=== PATIENT | female | born 1955 | race Caucasian/White ===

== ENCOUNTER 2021-05-07 08:24 | Day surgery (SDC) | payer MEDICARE ==
[2021-05-03 11:36] LABS: BASOPHILS % (AUTO) 0.8 % (0-1); EOSINOPHILS # (AUTO) 0.1 X10'3 (0-0.9); EOSINOPHILS % (AUTO) 1.3 % (0-6); LYMPHOCYTES # (AUTO) 1.4 X10'3 (1.1-4.8); LYMPHOCYTES % (AUTO) 23.4 % (21-51); MEAN CORPUSCULAR HEMOGLOBIN 31.6 PG (27.0-31.0); MEAN CORPUSCULAR HGB CONC 33.8 g/dL (33.0-36.5); MEAN CORPUSCULAR VOLUME 93.5 FL (78-98); MEAN PLATELET VOLUME 8.9 FL (7.4-10.4); MONOCYTES # (AUTO) 0.4 X10'3 (0-0.9); MONOCYTES % (AUTO) 6.9 % (2-12); NEUTROPHILS % (AUTO) 67.6 % (42-75); PRE OP HEMATOCRIT 39.3 % (35.0-45.0); PRE OP HEMOGLOBIN 13.3 g/dL (12.0-16.0); PRE OP PLATELET COUNT 269 X10'3 (140-440); RED BLOOD COUNT 4.21 X10'6 (4.20-5.60); RED CELL DISTRIBUTION WIDTH 13.1 % (11.5-14.5)
[2021-05-03 11:53] LABS: ALBUMIN 3.9 G/DL (3.4-5.0); ALKALINE PHOSPHATASE 99 IU/L (46-116); BLOOD UREA NITROGEN 14 MG/DL (7-18); BUN/CREATININE RATIO 20.3 (6.6-38.0); CALCIUM 9.1 MG/DL (8.5-10.1); CHLORIDE 107 MMOL/L (99-107); CREATININE 0.69 MG/DL (0.40-0.90); PRE OP ALT 26 U/L (30-65); PRE OP ANION GAP 11 (8-16); PRE OP AST 17 U/L (10-37); PRE OP BILIRUB, TOTAL 0.4 MG/DL (0.0-1.0); PRE OP GLUCOSE 92 MG/DL (70-104); PRE OP POTASSIUM 4.1 MMOL/L (3.4-5.1); PRE OP SODIUM 146 MMOL/L (135-145); TOTAL CARBON DIOXIDE 28.5 MMOL/L (24-32); TOTAL PROTEIN 7.9 G/DL (6.4-8.2); eGFR 85 ML/MIN
[~2021-05-07] VITALS: Ht 160 cm; Wt 138.0 kg
[2021-05-07] VITALS (7 sets, daily range): BP systolic 116–134; BP diastolic 60–73
[~2021-05-07 08:24] MED LIST: VITAMINS; ceFAZolin inj. 3,000 MG in normal saline 100ml IV soln 100 ML IV ONE; ceFAZolin/D5W- 1GM premix 50 ML IV ONE; cefazolin/dext.iso 2gm/50ml 50 ML IV ONE; famotidine 20mg tablet PO ONE; ringers solution, lacted 1,000 ML IV SCH
[2021-05-07] MEDS ORDERED: LIDOCAINE 1%/EPI 1:100,000 inj. 10 ML multi-dose vial ONE (09:52)
[2021-05-07] MEDS ORDERED: BUPIVAcaine/PF 2.5mg/ml (0.25%) 10ml vial ONE (09:53)
[2021-05-07] MEDS ORDERED: fentaNYL/PF 50MCG/1 ML 2ML syringe ONE ×2 (10:53→11:18)
[2021-05-07] MEDS ORDERED: midazolam 1 mg/ML 2ml injection ONE (10:53)
[2021-05-07] MEDS ORDERED: ketamine 50mg/5ml syringe ONE (10:55)
[2021-05-07] MEDS ORDERED: meperidine/PF 25mg/ml syringe IV PRN ×2 (11:00)
[2021-05-07] MEDS ORDERED: HYDROmorphone/PF 0.2 MG/ML SYRINGE IV PRN ×2 (11:00)
[2021-05-07] MEDS ORDERED: ondansetron/PF 4mg/2ml inj IV PRN (11:00)
[2021-05-07] MEDS ORDERED: ringers solution, lacted 1,000 ML IV SCH (11:00)
[2021-05-07] MEDS ORDERED: propofol inj 20 ML IV ONE (11:06)
[2021-05-07] MEDS ORDERED: LIDOcaine 1%/PF 5ML 10 MG/ML VIAL ONE (11:06)
[2021-05-07] MEDS ORDERED: bacitracin 15gm ointment TP ONE (11:30)
[2021-05-07] MEDS ORDERED: flumazenil 0.1 mg/ml inj. IV ONE (11:34)
--- NOTE | 2021-05-07 11:35 | NUR ---
ADMITTED TO PACU FROM OR ACCOMPANIED BY ANESTHESIA. INTIAL PHYSICAL ASSESSMENT DONE AND RECORDED. REPORT RECEIVED FROM ANESTHESIA.
[2021-05-07] MEDS ORDERED: HYDROcodone/acetaminophen 5mg/325mg tablet PO PRN (12:00)
--- NOTE | 2021-05-07 12:35 | NUR ---
DISCHARGE CRITERIA MET, DISCHARGE INSTRUCTIONS GIVEN, DEMONSTRATES VERBAL UNDERSTANDING. DISCHARGED HOME IN GOOD CONDITION.
== END 2021-05-07 12:35 | disposition home or self-care (01) ==
LOC: PAS 08:24
PROVIDERS: ATTEND Surgery
DX: K62.0 Anal polyp (principal); K64.1 Second degree hemorrhoids; K60.1 Chronic anal fissure; K62.89 Other specified diseases of anus and rectum; Z20.822 Contact with and (suspected) exposure to COVID-19; Z79.899 Other long term (current) drug therapy; Z98.890 Other specified postprocedural states; Z98.51 Tubal ligation status; Z91.012 Allergy to eggs; Z91.018 Allergy to other foods; Z88.8 Allergy status to other drugs, medicaments and biological substances; Z80.1 Family history of malignant neoplasm of trachea, bronchus and lung; Z80.0 Family history of malignant neoplasm of digestive organs
CPT/HCPCS: 36415; 45990; 46200; 46922; 46946; 80053; 82948; 85025; 93005; J0690; J2250; J2704; J3010; J3490; J7120; U0003; U0005; Z7506; Z7512; 88305; A4215; A4618; A6253; A6449; A7000